=== PATIENT | male | born 1925 ===

== ENCOUNTER → 2016-10-30 | Day surgery (SDC) | payer OTHER ==
[2016-09-28 14:42] VITALS: Ht 182.9 cm; Wt 90.0 kg
[~2016-10-30] VITALS: Ht 182.9 cm; Wt 90.0 kg
[~2016-10-30] MED LIST: 500ML BSS 0.3ML EPI 1:1000PF IRRIG ONE; ACET-1311 PO; ACETAMINOPHEN 325 MG TAB PO PRN; AMIO200T4 PO; AMVISC PLUS 0.8ML SYRINGE INT OCU ONE; ARTISOL OPB; ARTISOL12 OPB; ASPI81TA28 PO; ATROPINE SULFATE 0.1 MG/ML 5ML SYR IV PRN; BROM0.07 OPR; BSS FLUSH ONE; CARB25TA12 PO; DIFL0.0519 OPR; DOCU-94 PO; DRGTP12 TOP; ERYOPO OPB; EpHEDrine SULFATE INJ 50 MG/ML AMP IV PRN; EpINEphrine INJ 1MG/ML AMP 1 MG/ML AMP ONE; FINA5TAB PO; FRS/40 PO; GATI0.5S OPR; GUAI1TAB55 PO; HYDR-4079 PO; LACTATED RINGER'S 1000ML 500 ML IV SCH; LEVO100T7 PO; LIDOCAINE 3.5% OPH GEL PER APPLICATION CHARGE ONE; LIDOCAINE HCL 1% MPF 2 ML VIAL ONE; LINA1CAP PO; MIDAZOLAM HCL 1 MG/ML 2ML VIAL ONE; NALO1TAB2 PO; OCUCOAT 1 ML SOLN IO ONE; POLY335019 PO; POTA20TA16 PO; POVIDONE-IODINE OP SOLN 30 ML BTL ONE; PROPARACAINE 0.5% OP SOLN PER DROP CHARGE OPR SCH; SENN8.6T13 PO; SYMIN160 INH; TOBRAMYCIN/DEXAMETHASONE OPH OINT PER APPLN CHARGE ONE; TOBRSUS OPB; ZINC13CR TOP; [UNRECOGNIZED DRUG - OTHER] PO
[2016-10-30] MEDS: PHENYLEPHRINE HCL 2.5% OP SOLN PER DROP CHARGE OPR SCH ×2 (11:18→11:25)
[2016-10-30] MEDS: TROPICAMIDE 1% OP SOLN PER DROP CHARGE OPR SCH ×2 (11:19→11:26)
[2016-10-30] MEDS: CYCLOPENTOLATE HCL 1% OP SOLN PER DROP CHARGE OPR SCH ×2 (11:21→11:27)
[2016-10-30] MEDS: KETOROLAC 0.5% OP SOLN PER DROP CHARGE OPR SCH ×2 (11:22→11:29)
[2016-10-30] MEDS: GATIFLOXACIN OP SOLN PER DROP CHARGE OPR SCH ×2 (11:23→11:32)
--- NOTE | 2016-10-30 11:53 | History & Physical Bridge - [place] ---
H&P Re-Evaluation Bridge Note: I have examined the patient, reviewed the History & Physical and in the interval since the performance of the History & Physical I have noted the following changes of clinical significance: Diagnosis: Right Cataract Procedure: Right Cataract Removal with Lens Implant No changes noted
--- NOTE | 2016-10-30 12:29 | Discharge Instructions-SurgCtr ---
Discharge Instructions Date of Service Oct 30, 2016. Visit Reason for Visit: Cataract Right Eye Discharge Discharge Diagnosis / Problem: cataract Discharge Goals Goal(s): Improve function Activity Recommendations Activity Limitations: per Instructions/Follow-up section Anesthesia . Post Anesthesia Instructions: If you have had General Anesthesia or IV Sedation: * Do not drive today. * Resume driving when surgeon permits. * Do not make important decisions or sign legal documents today. * Call surgeon for: 1. Temperature elevations greater than 101 degrees F. 2. Uncontrollable pain. 3. Excessive bleeding. 4. Persistent nausea and vomiting. 5. Medication intolerance (nausea, vomiting or rash). * For nausea and vomiting use only clear liquids such as: tea, soda, bouillon until nausea subsides, then gradually increase diet as tolerated. * If you have any concerns or questions, call your surgeon's office. If physician is unavailable and it is an emergency, call 911 or go to the nearest emergency room. . Instructions / Follow-Up Instructions / Follow-Up ACTIVITY RECOMMENDATIONS: * No strenuous lifting, jogging or running for 4 days * No swimming or yard work for 1 week. * Limited bending is permitted, such as putting on shoes. RETURN TO SCHOOL/WORK: No work until seen by physician in office. MEDICATIONS: Resume previous medications unless instructed otherwise by your surgeon. This includes eye drops for glaucoma. Zymaxid/Gatifloxacin (bach cap) - one drop every 2 hours until bedtime Nevanac/Ilevro/Prolensa/Ketorolac (trinidad cap) - one drop every 4 hours until bedtime Prednisolone/Durezol (white/pink cap, SHAKE WELL) - one drop every 2 hours until bedtime Starting tomorrow - all 3 drops every 4 hours until seen in the office Optive drops - as needed for discomfort SPECIAL CARE INSTRUCTIONS: * Wear eyeshield when sleeping, for four nights. * You may wear your own glasses or sunglasses while awake. * You may read or watch TV * You may shower and wash your face, but be gentle around the eye and pat dry. * Blurry vision and mild irritation are normal. * Call office if pain is more severe or vision becomes dark at . FOLLOW UP VISIT: Follow-up with Dr Elizalde tomorrow. Diet Recommendations Home Diet: resume previous diet Procedures Procedures Performed: Right Cataract Phacoemulsification With Intraocular Lens Implant Pending Studies Studies pending at discharge: no Medical Emergencies . Who to Call and When: Medical Emergencies: If at any time you feel your situation is an emergency, please call 911 immediately. . Non-Emergent Contact Non-Emergency issues call your: Dining Room Supervisor . . "Provider Documentation" section prepared by Jose Elizalde. .
--- NOTE | 2016-10-30 12:29 | [facility] Operative Report ---
Operative Report Date of Service Oct 30, 2016. Operative Report 1. PREOPERATIVE DIAGNOSIS: Cataract of the right eye. 2. POSTOPERATIVE DIAGNOSIS: Same. 3. PROCEDURE: Phacoemulsification with intraocular lens implantation of the right eye. SURGEON: Dr. Jose Elizalde. ANESTHESIA: Topical Lidocaine gel, 1% Non- Preserved intracameral Lidocaine, and monitored intravenous sedation. INDICATIONS FOR THE PROCEDURE: The patient is a 89 - year-old male with a history of cataract of the right eye causing significant visual impairment. The details of the proposed procedure were explained to the patient who asked appropriate questions and following discussion of all risks, benefits and alternatives agreed to have the procedure done. 4. OPERATION AND FINDINGS: DESCRIPTION OF PROCEDURE: After informed consent was obtained, the patient was brought to the Operating Room at the [facility]. The patient was placed in a supine position and then the right eye was prepped and draped in the usual sterile fashion for intraocular surgery. A drop of topical Lidocaine gel was placed in the operative eye. A wire lid speculum was then placed in the fornices. A corneal paracentesis was then created temporally. The Non-Preserved Lidocaine was then instilled into the anterior chamber. The anterior chamber was then pressurized with viscoelastic. A 2.0 mm clear corneal incision was then created temporally. A cystotome was inserted into the anterior chamber and used to create a tear in the anterior lens capsule. This capsular tear was then used to create a small flap and the flap was dragged in a counterclockwise direction in order to create a continuous curvilinear capsulorrhexis. Hydrodissection was accomplished with balanced salt solution. Phacoemulsification of the lens nucleus was then performed in a standard [id number] technique. The phaco time was 23 seconds with an average power of 9 %. The remaining cortical material was removed using irrigation aspiration. The capsular bag was then filled with viscoelastic. A Bausch & Lomb MI60L +23.0 diopters lens was then loaded into the injector and injected into the capsular bag. The remaining viscoelastic was removed with the irrigation aspiration handpiece. The wound was hydrated and then checked and found to be watertight. The intraocular pressure was checked and found to be adequate. The wire lid speculum was removed and the patient's face was cleaned and dried. TobraDex ointment was placed in the inferior fornix. The patient was discharged to the Recovery Room having tolerated the procedure well. There were no complications. The patient will be seen tomorrow in the office for follow-up. I attest to the content of the Intraoperative Record and any orders documented therein. Any exceptions are noted below.
[2016-10-30 12:49] VITALS: TEMP 36.4
--- NOTE | 2016-10-30 12:58 | Anesthesia Progress Nt - [facility] ---
Anesthesia Post Op Note Date & Time Oct 30, 2016 at 12:57 Vital Signs Pain Intensity: 0 Vital Signs Past 12 Hours Date Time Temp Pulse Resp B/P (MAP) Pulse Ox O2 Delivery O2 Flow Rate FiO2 10/30/16 12:49 36.4 54 16 133/77 (95) 96 Room Air 10/30/16 11:30 137/80 (99) 10/30/16 11:11 36.9 56 18 151/81 (104) 98 Room Air Notes Mental Status: alert / awake / arousable, participated in evaluation Pt Amnestic to Procedure: Yes Nausea / Vomiting: adequately controlled Pain: adequately controlled Airway Patency, RR, SpO2: stable & adequate BP & HR: stable & adequate Hydration State: stable & adequate Anesthetic Complications: no major complications apparent
[2016-10-30 13:00] VITALS: BP 149/87; PULSE 56; O2SAT 99
== END | disposition home or self-care (01) ==
LOC: X.SURG 10:38
PROVIDERS: ATTEND Ophthalmology
DX: H26.9 Unspecified cataract (principal); G20 Parkinson's disease; I48.2 Chronic atrial fibrillation; I50.22 Chronic systolic (congestive) heart failure; I11.0 Hypertensive heart disease with heart failure; E03.9 Hypothyroidism, unspecified; G89.29 Other chronic pain; M54.2 Cervicalgia; N40.0 Benign prostatic hyperplasia without lower urinary tract symptoms; I73.9 Peripheral vascular disease, unspecified; Z79.82 Long term (current) use of aspirin; Z79.899 Other long term (current) drug therapy

== ENCOUNTER → 2016-11-20 | Day surgery (SDC) | payer OTHER ==
--- NOTE | 2016-11-05 15:15 | PAT Medication Instructions ---
Service Date Nov 05, 2016. Current Home Medication List Acetaminophen (Tylenol), 325 MG PO BID PRN for Pain Amiodarone Hcl (Cordarone), 200 MG PO QAM Artificial Tear Solution (Artificial Tears), 2 DROPS OPB BID Artificial Tear Solution (Tears Naturale), 2 DROPS OPB QID PRN for DRY EYES Aspirin (Aspirin Ec), 81 MG PO QAM Bromfenac Sodium (Ophth) (Prolensa), 1 DROP OPR DAILY Budesonide/Formoterol Fumarate (Symbicort 160/4.5 Inhaler ), 1 PUFF INH BID Carbidopa/Levodopa (Sinemet 25MG/100MG), 1 TAB PO QID Difluprednate (Durezol), 1 DROP OPR BID Docusate Sodium (Colace), 1 CAP PO DAILY PRN for Constipation Erythromycin Opth (Erythromycin Opth), 0.25 INCH OPB HS Fentanyl (Fentanyl), 1 PATCH TOP [id number] Finasteride (Proscar), 5 MG PO QAM Furosemide (Lasix), 40 MG PO QAM Gatifloxacin (Ophth) (Zymaxid), 1 DROPS OPR QID Guaifenesin Ext Rel (Mucinex Ext Rel), 600 MG PO Q12 Hydrocodone/Acetaminophen 10MG/325MG ([facility] [place] 10MG/325MG), 1 TAB PO Q4H PRN for Pain Levothyroxine Sodium (Levothyroxine Sodium), 1 TAB PO QAM Linaclotide (Linzess), 1 CAP PO QAM PRN for Constipation Naloxegol Oxalate (Movantik), 1 TAB PO QAM Polyethylene Glycol 3350 (Miralax), 17 GM PO DAILY PRN for Constipation Potassium Ext Rel (Klor-Con), 20 MEQ PO QAM Sennosides (Senna Lax), 1 TAB PO DAILY PRN for Constipation Tobramycin/Dexamethasone 0.3% Oph (Tobradex 0.3% Oph), 1 DROP OPB BID Zinc Oxide (Topical) (Desitin), 1 DOSE TOP BID PRN for SKIN IRRITATION [Activator Supplement], 2 TAB PO BID Medication Instructions For Your Scheduled Surgery - Follow surgeon's instructions for: Tobramycin/Dexamethasone 0.3% Oph (Tobradex 0.3% Oph), 1 DROP OPB BID Artificial Tear Solution (Artificial Tears), 2 DROPS OPB BID Artificial Tear Solution (Tears Naturale), 2 DROPS OPB QID PRN for DRY EYES Bromfenac Sodium (Ophth) (Prolensa), 1 DROP OPR DAILY Gatifloxacin (Ophth) (Zymaxid), 1 DROPS OPR QID Difluprednate (Durezol), 1 DROP OPR BID Erythromycin Opth (Erythromycin Opth), 0.25 INCH OPB HS Aspirin (Aspirin Ec), 81 MG PO QAM -Continue as directed: Fentanyl (Fentanyl), 1 PATCH TOP [id number] - Hold the following medications 24 hours prior to surgery: Zinc Oxide (Topical) (Desitin), 1 DOSE TOP BID PRN for SKIN IRRITATION - Hold the following medications the morning of surgery: Furosemide (Lasix), 40 MG PO QAM Linaclotide (Linzess), 1 CAP PO QAM PRN for Constipation Naloxegol Oxalate (Movantik), 1 TAB PO QAM Polyethylene Glycol 3350 (Miralax), 17 GM PO DAILY PRN for Constipation Potassium Ext Rel (Klor-Con), 20 MEQ PO QAM Sennosides (Senna Lax), 1 TAB PO DAILY PRN for Constipation Docusate Sodium (Colace), 1 CAP PO DAILY PRN for Constipation Guaifenesin Ext Rel (Mucinex Ext Rel), 600 MG PO Q12 [Activator Supplement], 2 TAB PO BID - Take the following medications the morning of surgery with a sip of water: Acetaminophen (Tylenol), 325 MG PO BID PRN for Pain (can take up to 4 hours prior to surgery if needed) Hydrocodone/Acetaminophen 10MG/325MG ([facility] [place] 10MG/325MG), 1 TAB PO Q4H PRN for Pain (can take up to 4 hours prior to surgery if needed) Amiodarone Hcl (Cordarone), 200 MG PO QAM Levothyroxine Sodium (Levothyroxine Sodium), 1 TAB PO QAM Carbidopa/Levodopa (Sinemet 25MG/100MG), 1 TAB PO QID Budesonide/Formoterol Fumarate (Symbicort 160/4.5 Inhaler ), 1 PUFF INH BID Finasteride (Proscar), 5 MG PO QAM - Take the following medications as scheduled the night before surgery: Acetaminophen (Tylenol), 325 MG PO BID PRN for Pain Hydrocodone/Acetaminophen 10MG/325MG ([facility] [place] 10MG/325MG), 1 TAB PO Q4H PRN for Pain Carbidopa/Levodopa (Sinemet 25MG/100MG), 1 TAB PO QID Budesonide/Formoterol Fumarate (Symbicort 160/4.5 Inhaler ), 1 PUFF INH BID Polyethylene Glycol 3350 (Miralax), 17 GM PO DAILY PRN for Constipation Sennosides (Senna Lax), 1 TAB PO DAILY PRN for Constipation Docusate Sodium (Colace), 1 CAP PO DAILY PRN for Constipation Guaifenesin Ext Rel (Mucinex Ext Rel), 600 MG PO Q12 *OTHERWISE NOTHING TO EAT OR DRINK AFTER MIDNIGHT THE NIGHT BEFORE SURGERY* If you have any questions please call us at [phone] or [phone] or [phone]
[~2016-11-20] MED LIST changes: -EpHEDrine SULFATE INJ 50 MG/ML AMP IV PRN; +PHENYLEPHRINE HCL 2.5% OP SOLN PER DROP CHARGE OPL SCH; +PROPARACAINE 0.5% OP SOLN PER DROP CHARGE OPL SCH; -PROPARACAINE 0.5% OP SOLN PER DROP CHARGE OPR SCH; +SODIUM CHLORIDE 0.9% 500ML IV SCH
[2016-11-20] MEDS: TROPICAMIDE 1% OP SOLN PER DROP CHARGE OPL SCH ×2 (13:15→13:22)
[2016-11-20] MEDS: KETOROLAC 0.5% OP SOLN PER DROP CHARGE OPL SCH ×2 (13:16→13:24)
[2016-11-20] MEDS: CYCLOPENTOLATE HCL 1% OP SOLN PER DROP CHARGE OPL SCH ×2 (13:16→13:23)
[2016-11-20] MEDS: GATIFLOXACIN OP SOLN PER DROP CHARGE OPL SCH ×2 (13:18→13:27)
--- NOTE | 2016-11-20 13:36 | History & Physical Bridge - [place] ---
H&P Re-Evaluation Bridge Note: I have examined the patient, reviewed the History & Physical and in the interval since the performance of the History & Physical I have noted the following changes of clinical significance: No changes noted
--- NOTE | 2016-11-20 13:55 | Discharge Instructions-SurgCtr ---
Discharge Instructions Date of Service Nov 20, 2016. Visit Reason for Visit: Cataract Left Eye Discharge Discharge Diagnosis / Problem: cataract Discharge Goals Goal(s): Improve function Activity Recommendations Activity Limitations: per Instructions/Follow-up section Anesthesia . Post Anesthesia Instructions: If you have had General Anesthesia or IV Sedation: * Do not drive today. * Resume driving when surgeon permits. * Do not make important decisions or sign legal documents today. * Call surgeon for: 1. Temperature elevations greater than 101 degrees F. 2. Uncontrollable pain. 3. Excessive bleeding. 4. Persistent nausea and vomiting. 5. Medication intolerance (nausea, vomiting or rash). * For nausea and vomiting use only clear liquids such as: tea, soda, bouillon until nausea subsides, then gradually increase diet as tolerated. * If you have any concerns or questions, call your surgeon's office. If physician is unavailable and it is an emergency, call 911 or go to the nearest emergency room. . Diet Recommendations Home Diet: resume previous diet Procedures Procedures Performed: Left Cataract Phacoemulsification With Intraocular Lens Implant Pending Studies Studies pending at discharge: no Medical Emergencies . Who to Call and When: Medical Emergencies: If at any time you feel your situation is an emergency, please call 911 immediately. . Non-Emergent Contact Non-Emergency issues call your: Demographer . . "Provider Documentation" section prepared by Jose Elizalde. .
--- NOTE | 2016-11-20 13:56 | [facility] Operative Report ---
Operative Report Date of Service Nov 20, 2016. Operative Report 1. PREOPERATIVE DIAGNOSIS: Cataract of the left eye. 2. POSTOPERATIVE DIAGNOSIS: Same. 3. PROCEDURE: Phacoemulsification with intraocular lens implantation of the left eye. SURGEON: Dr. Jose Elizalde. ANESTHESIA: Topical Lidocaine gel, 1% Non- Preserved intracameral Lidocaine, and monitored intravenous sedation. INDICATIONS FOR THE PROCEDURE: The patient is a 89 - year-old male with a history of cataract of the left eye causing significant visual impairment. The details of the proposed procedure were explained to the patient who asked appropriate questions and following discussion of all risks, benefits and alternatives agreed to have the procedure done. 4. OPERATION AND FINDINGS: DESCRIPTION OF PROCEDURE: After informed consent was obtained, the patient was brought to the Operating Room at the [facility]. The patient was placed in a supine position and then the left eye was prepped and draped in the usual sterile fashion for intraocular surgery. A drop of topical Lidocaine gel was placed in the operative eye. A wire lid speculum was then placed in the fornices. A corneal paracentesis was then created temporally. The Non-Preserved Lidocaine was then instilled into the anterior chamber. The anterior chamber was then pressurized with viscoelastic. A 2.0 mm clear corneal incision was then created temporally. A cystotome was inserted into the anterior chamber and used to create a tear in the anterior lens capsule. This capsular tear was then used to create a small flap and the flap was dragged in a counterclockwise direction in order to create a continuous curvilinear capsulorrhexis. Hydrodissection was accomplished with balanced salt solution. Phacoemulsification of the lens nucleus was then performed in a standard [id number] technique. The phaco time was 23 seconds with an average power of 17 %. The remaining cortical material was removed using irrigation aspiration. The capsular bag was then filled with viscoelastic. A Bausch & Lomb MI60L +21.0 diopters lens was then loaded into the injector and injected into the capsular bag. The remaining viscoelastic was removed with the irrigation aspiration handpiece. The wound was hydrated and then checked and found to be watertight. The intraocular pressure was checked and found to be adequate. The wire lid speculum was removed and the patient's face was cleaned and dried. TobraDex ointment was placed in the inferior fornix. The patient was discharged to the Recovery Room having tolerated the procedure well. There were no complications. The patient will be seen tomorrow in the office for follow-up. I attest to the content of the Intraoperative Record and any orders documented therein. Any exceptions are noted below.
[2016-11-20 13:58] VITALS: TEMP 36.4
[2016-11-20 14:19] VITALS: BP 144/83; PULSE 60; O2SAT 100
--- NOTE | 2016-11-20 14:25 | Anesthesia Progress Nt - [facility] ---
Anesthesia Post Op Note Date & Time Nov 20, 2016 at 14:25 Vital Signs Pain Intensity: 0 Vital Signs Past 12 Hours Date Time Temp Pulse Resp B/P (MAP) Pulse Ox O2 Delivery O2 Flow Rate FiO2 11/20/16 14:19 60 16 144/83 (103) 100 Room Air 11/20/16 13:58 36.4 52 16 130/77 (94) 100 Room Air 11/20/16 13:04 36.9 61 18 138/72 (94) 98 Room Air Notes Mental Status: alert / awake / arousable, participated in evaluation Pt Amnestic to Procedure: Yes Nausea / Vomiting: adequately controlled Pain: adequately controlled Airway Patency, RR, SpO2: stable & adequate BP & HR: stable & adequate Hydration State: stable & adequate Anesthetic Complications: no major complications apparent
== END | disposition home or self-care (01) ==
LOC: X.SURG 12:13
PROVIDERS: ATTEND Ophthalmology
DX: H26.9 Unspecified cataract (principal); I73.9 Peripheral vascular disease, unspecified; I11.0 Hypertensive heart disease with heart failure; I50.9 Heart failure, unspecified; I48.91 Unspecified atrial fibrillation; G20 Parkinson's disease; E03.9 Hypothyroidism, unspecified; Z79.899 Other long term (current) drug therapy; Z96.659 Presence of unspecified artificial knee joint